=== PATIENT | female | born 1965 | race Caucasian/White ===

== ENCOUNTER → 2016-08-18 | Outpatient (CLI) | payer BC | END | disposition home or self-care (01) | LOC: C.PAPS 07:50 | PROVIDERS: ATTEND Family Medicine | DX: Z01.419 Encounter for gynecological examination (general) (routine) without abnormal findings (principal) ==

== ENCOUNTER → 2016-08-18 | Outpatient (CLI) | payer BC, OTHER ==
[2016-08-18 18:31] LABS: THYROID STIMULATING HORMONE 0.167 uIu/ml (0.300-4.500)
== END | disposition home or self-care (01) ==
LOC: C.LABMFLN 15:04
PROVIDERS: ATTEND Family Medicine
DX: E03.9 Hypothyroidism, unspecified (principal)

== ENCOUNTER → 2016-10-16 | Outpatient (CLI) | payer BC ==
--- NOTE | 2016-10-16 15:42 | MAMMOGRAPHY REPORT ---
UNILATERAL LEFT DIGITAL DIAGNOSTIC MAMMOGRAM TOMOSYNTHESIS WITH CAD AND TARGETED LEFT ULTRASOUND: 09/28 CLINICAL HISTORY: 50-year-old woman with a family history of breast cancer presents with a new palpab le lump in the upper outer quadrant of the left breast. TECHNIQUE: Left breast tomosynthesis in addition to standard 2D mammography was performed. Current st udy was also evaluated with a Computer Aided Detection (CAD) system. COMPARISON: Comparison is made to exams dated: 01/01/2016 mammogram, 12/20/2014 mammogram, 12/06/2013 ma mmogram, 07/30/2009 mammogram, 11/26/2012 mammogram, and 10/30/2011 mammogram. BREAST COMPOSITION: The tissue of the left breast is heterogeneously dense, which may obscure small masses. FINDINGS: A triangular skin palpable marker overlies the upper outer quadrant of the left breast, den oting the palpable lump pointed out by the patient. There are multiple circumscribed masses in the l eft breast, and the dominant mass/masses is seen in the area of palpable concern in the 12:00 to 1:00 left breast, measuring 2.1 x 2.9 x 2.2 cm in conglomerate. Other smaller similar appearing circumsc ribed masses are seen in the 6:00 axis and upper outer quadrant. No focal area of architectural dist ortion, suspicious cluster of micro-calcifications or developing asymmetry is identified. Targeted ultrasound was performed in the area of palpable lump pointed out by the patient (12:00 left breast, 2 cm from the nipple). There are are 3 abutting anechoic benign simple cysts measuring appr oximately 2.9 x 2.1 cm in conglomerate. These correlate with the palpable lump and also with the radha mographic mass/masses. Additional anechoic benign simple cysts are identified in the 3:00 left breas t, 2 cm from the nipple, measuring 1.4 x 0.8 cm, and another large cyst versus 2 abutting cysts are s een in the retroareolar left breast measuring 2.7 no suspicious solid mass is seen. IMPRESSION: ACR BI-RADS CATEGORY 2: BENIGN, TARGETED ULTRASOUND ACR BI-RADS CATEGORY 2: BENIGN The palpable lump in the 12:00 left breast correlates with 3 abutting anechoic benign simple cysts on ultrasound. There are other simple cysts identified throughout the left breast on ultrasound, meli tible with benign fibrocystic changes. There is no mammographic or targeted sonographic evidence of malignancy in the left breast. Recommend continuation of annual screening mammography schedule (due December 2016), and would recommend tomosynthesis images given the heterogeneously dense breasts, mult iple masses, and family history of breast cancer. Approximately 10% of breast cancers are not detected with mammography. A negative mammographic report should not delay biopsy if a clinically suggestive mass is present. Iraida Oates M.D. ay/:10/16/2016 14:45:00 Quality Systems Technician: Kerry Dinero, [facility] letter sent: Normal 1/2 BI-RADS Code: ACR BI-RADS Category 2: Benign Ultrasound BI-RADS: ACR BI-RADS Category 2: Benign
== END | disposition home or self-care (01) ==
LOC: C.MAMM 09:07
PROVIDERS: ATTEND Physician Assistant
DX: N63 Unspecified lump in breast (principal); Z85.3 Personal history of malignant neoplasm of breast

== ENCOUNTER → 2017-01-01 | Outpatient (CLI) | payer BC ==
--- NOTE | 2017-01-02 08:29 | MAMMOGRAPHY REPORT ---
BILATERAL DIGITAL SCREENING MAMMOGRAM TOMOSYNTHESIS WITH CAD: 01/01/2017 CLINICAL HISTORY: Routine screening. Patient has no complaints. TECHNIQUE: Breast tomosynthesis in addition to standard 2D mammography was performed. Current study was also evaluated with a Computer Aided Detection (CAD) system. COMPARISON: Comparison is made to exams dated: 10/16/2016 mammogram - [facility], 1 mammogram, 12/20/2014 mammogram, 12/06/2013 mammogram, 11/26/2012 mammogram, and 10/30/2011 mammog elise. BREAST COMPOSITION: The tissue of both breasts is heterogeneously dense, which may obscure small mas ses. FINDINGS: No suspicious masses, calcifications, or areas of architectural distortion are noted in ei ther breast. There has been no significant interval change compared to prior exams. Fluctuating circ umscribed benign-appearing masses are again noted scattered throughout bilateral breasts, which are c onsidered benign given the multiplicity and bilaterality and most compatible with cysts, with cysts s een on multiple prior ultrasound exams. Scattered bilateral benign-appearing calcifications are also stable. IMPRESSION: ACR BI-RADS CATEGORY 2: BENIGN There is no mammographic evidence of malignancy. A 1 year screening mammogram is recommended. The pa tient will receive written notification of the results. Approximately 10% of breast cancers are not detected with mammography. A negative mammographic report should not delay biopsy if a clinically suggestive mass is present. Roula Pagan M.D. ah/:01/01/2017 15:52:24 Cotton Classer: Bina YOU(R)(M), [facility] letter sent: Normal 1/2 BI-RADS Code: ACR BI-RADS Category 2: Benign
== END | disposition home or self-care (01) ==
LOC: C.MAMM 10:08
PROVIDERS: ATTEND Family Medicine
DX: Z12.31 Encounter for screening mammogram for malignant neoplasm of breast (principal)